=== PATIENT | female | born 1985 | race Caucasian/White ===

== ENCOUNTER 2018-07-11 14:59 | Emergency (ER) | payer OTHER ==
[~2018-07-11] VITALS: Ht 162.6 cm; Wt 96.2 kg
[2018-07-11 15:01] VITALS: BP 126/84
--- NOTE | 2018-07-11 15:10 | NUR ---
pt ambulated to bed 12
--- NOTE | 2018-07-11 15:15 | NUR ---
BIB SELF W/ C/O SORE THROAT AND NAUSEA/VOMITING X1 DAY. DENIES FEVER, COUGH, DIARRHEA. PT STATES SHE "CANT KEEP ANYTHING DOWN, NOT WATER OR BROTH, MEDICINE, NOTHING".
[2018-07-11] MEDS ORDERED: ONDANSETRON 4 MG/2 ML VIAL IM ONE (15:20)
--- NOTE | 2018-07-11 15:20 | NUR ---
influenza & strep swab collected and sent to lab
[2018-07-11] MEDS ORDERED: LIDOCAINE VISCOUS 2% 20 ML UDC PO ONE (16:10)
[2018-07-11] MEDS ORDERED: AMOXICILLIN 500 MG CAP PO ONE (16:10)
[2018-07-11 16:36] VITALS: BP 126/84
--- NOTE | 2018-07-11 16:37 | NUR ---
Patient discharged with v/s stable. Written and verbal after care instructions given and explained. Patient alert, oriented and verbalized understanding of instructions. Ambulatory with steady gait. All questions addressed prior to discharge. ID band removed. Patient advised to follow up with PMD. Rx of AMOXICILLIN, ZOFRAN, LIDOCAINE SOLUTION, & MOTRIN given. Patient educated on indication of medication including possible reaction and side effects. Opportunity to ask questions provided and answered.
== END 2018-07-11 16:37 | disposition home or self-care (01) ==
LOC: MED 14:59
DX: J02.8 Acute pharyngitis due to other specified organisms (principal); B96.89 Other specified bacterial agents as the cause of diseases classified elsewhere
CPT/HCPCS: 87081; 87804; 96372; 99283; J2405

== ENCOUNTER 2018-07-13 10:53 | Emergency (ER) | payer OTHER ==
[~2018-07-13] VITALS: Ht 162.6 cm; Wt 96.2 kg
[2018-07-13 10:56] VITALS: BP 113/40
--- NOTE | 2018-07-13 11:00 | NUR ---
PT BIB SELF TO THE ED WITH THE CHIEF C/O SORE THROAT AND VOMITING SINCE FRIDAY. PT WAS HERE ON FRIDAY FOR SAME SYMPTOMS AND WAS TAKING AMOXICILLIN, LIDOCAINE AND ZOFRAN W/O RELIEF FROM SYMPTOMS. PT REPORTS SHE CAN NOT SWALLOW DUE TO PAIN. STATES PAIN OF 10/10. REPORTS FEELING WEAK. LUNGS CLEAR. NO SOB, DIFFICULTY BREATHING OR COUGH NOTED AT THIS TIME.
[2018-07-13] MEDS ORDERED: ALBUTEROL SULFATE/IPRATROPIU 3 ML SOL IH ONE (11:55)
[2018-07-13] MEDS ORDERED: CLINDAMYCIN 600 MG/4 ML VIAL IM ONE (11:55)
[2018-07-13] MEDS ORDERED: DEXAMETHASONE 10 MG/ML VIAL IM ONE (11:55)
--- NOTE | 2018-07-13 12:44 | NUR ---
FLU SWAB TAKEN TO LAB.
[2018-07-13 13:55] VITALS: BP 111/55
--- NOTE | 2018-07-13 14:14 | NUR ---
Patient discharged with v/s stable. Written and verbal after care instructions given and explained. Patient alert, oriented and verbalized understanding of instructions. Ambulatory with steady gait. All questions addressed prior to discharge. ID band removed. Patient advised to follow up with PMD. Rx of CLINDAMYCIN, PREDNISON,PROMETHAZINE given. Patient educated on indication of medication including possible reaction and side effects. Opportunity to ask questions provided and answered.
== END 2018-07-13 14:14 | disposition home or self-care (01) ==
LOC: MED 10:53
DX: J03.90 Acute tonsillitis, unspecified (principal); R11.10 Vomiting, unspecified; Z39.1 Encounter for care and examination of lactating mother
CPT/HCPCS: 87804; 94640; 96372; 99283; J1100; J3490; J7620